=== PATIENT | male | born 1970 ===

== ENCOUNTER 2025-01-08 11:41 | Emergency (ER) | payer OTHER, MEDICAID, SELFPAY ==
[2025-01-08 12:50] VITALS: BP 143/74; PULSE 71; RESP 18; TEMP 36.7; O2SAT 94; BMI 31.9
--- NOTE | 2025-01-08 12:51 | ED.GENADULT ---
HPI - General Adult General Chief complaint: Eye Problems Stated complaint: Metal in Right eye, Saw accident, DR pinon Time Seen by Provider: 01/08/25 15:13 History of Present Illness ED Provider: Mary MONTE narrative: The patient is a 54-year-old male who says that he was using an electric saw on metal at work on Wednesday, 3 days ago. He believes that he got a small metal fragment in his right eye. He went to an urgent care the following day, Wednesday, 2 days ago. He was told that he had a piece of metal in his eye that they could not completely remove. He was prescribed erythromycin ointment and told he should be seen at an emergency room. He comes today because of this advice. He feels that the eye is feeling slightly better than it was feeling on Wednesday. He still has a sense of a foreign body in his eye. The patient does not wear contact lenses. He says he has never worn contact lenses. Related Data Previous Rx's ?Medication ?Instructions ?Recorded ofloxacin 0.3 % eye drops See Rx Instructions ophthalmic 01/08/25 (eye) .COMPLEX #10 mL Allergies Allergy/AdvReac Type Severity Reaction Status Date / Time No Known Allergies Allergy Verified 01/08/25 12:59 Review of Systems Review of Systems: Yes all other systems are reviewed and are negative PMFSH Social History Social History Advance Directives: No Advance Directives Information Provided: No Physical Exam ED Vital Signs: Vital Signs - 24 hr 01/08/25 12:50 Temperature 98.1 F Pulse Rate 71 Respiratory Rate 18 Blood Pressure 143/74 H Pulse Oximetry 94 Oxygen Delivery Method Room Air BMI result Body Mass Index 31.9 Const Other: The patient is a 54-year-old male who was awake and alert. He has a mild injection to the conjunctiva of the right eye but he had otherwise does not look acutely ill or in distress in any way. HENMT Other: The face is symmetrical. ?Mucous membranes moist. Eyes Other: The eyelids are normal. Pupils are round equal and reactive to light. There is some injection to the conjunctiva of the right eye. Extraocular movements are intact. Visual acuity was 20/50 in the right eye and 20/25 in the left eye. Slit-lamp exam did not reveal any obvious foreign body on the surface of the cornea or elsewhere in the eye. There was conjunctival injection but no perilimbal flushing. The cornea was clear. No rust ring was apparent. The anterior chamber seemed to clear. Fluorescein staining revealed some slight punctate uptake, mostly on the bottom half of the cornea. Negative Roxana sign. No actual corneal abrasion. Eyelid eversion revealed no foreign body under the eyelid. Neck Neck: Yes normal visual inspection and Yes full ROM Resp Effort & Inspection: normal respiratory effort Skin Other: The skin is dry and unremarkable Neuro General: gait normal, moves all extremities, no focal motor deficits and CN's II-XI intact bilaterally Course Course Course Narrative: This is a rapid medical exam performed by Elmer Camara NP: Additional HPI, ROS, PE not included below will be deferred to primary provider. Patient is a 54-year-old [place] speaking male presenting to the ED stating that at work on Wednesday, he was cutting pipes, and something fell into his eye, likely a piece of metal. Went to urgent care in [place] on Sat and was advised to follow up at the ED. Was given a patch and erythromycin ointment. Reporting pain, states UC was unable to remove the FB. Medications Administered Discontinued Medications Generic Name Dose Route Start Last Admin Trade Name Freq PRN Reason Stop Dose Admin Fluorescein Sodium 1 strip 01/08/25 14:59 01/08/25 15:01 Fluorescein Sodium Strip EYE-RIGHT 01/08/25 15:00 1 strip ONCE ONE Administration Tetracaine HCl 1 drop 01/08/25 14:42 01/08/25 14:58 Tetracaine Hcl/Pf 0.5% Oph Livier 4 Ml Drops EYE-RIGHT 01/08/25 14:43 1 drop ONCE ONE Administration Medical Decision Making Medical Decision Making 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 The patient is a 54-year-old male who indicates that 3 days ago on Wednesday he got a small piece of metal in his right eye when he was sawing metal at work. The next day, 2 days ago, he went to an urgent care and was told that he had a piece of metal in his eye that they could not and they got emergency room. He was given erythromycin ointment has a prescription. He has been using the erythromycin ointment. The patient arrived here stating that he has a foreign body in his eye that needs to be removed. He has been wearing an eye patch. He was very hard to interview with regard to the question of whether his eye was feeling better today than 2 days ago. Ultimately he seemed to imply that his eye is in fact feeling better. On my exam I do not see any foreign body with a slit-lamp exam. I do not see a rust ring. With fluorescein staining there seems to be some slight punctate uptake of dye that I would consider indicative of corneal irritation. I doubt this is a true full keratitis. The patient will be started on ofloxacin eyedrops. A prescription was sent to his pharmacy for this purpose. I explained I do not feel there was any foreign body to remove. I explained I felt that he had some corneal irritation that I hope will get better with the antibiotics. Our drill punch operator is currently on vacation until January 16. I have advised the patient to try to follow up with the drill punch operator but that if he feels his vision or his eye feels worse significantly before then he should return to the emergency room here or possibly go to another hospital which may have more robust ophthalmology coverage. Discharge Plan Discharge Clinical Impression: Corneal irritation of right eye Patient Disposition: Home, Self-Care Additional Instructions: I do not see any evidence that there is still any foreign body or metal in your eye. There is some irritation to the cornea of your eye. I have sent a prescription for new antibiotic eyedrops to your pharmacy. Please use these drops as prescribed. Please call the eye doctor office for a follow up appointment. I believe the eye doctor at this hospitalist currently on vacation until January 16. Nevertheless you may be able to arrange an appointment before then. My hope is that your I will get better over the next several days with the eyedrops. However if you get worse before you are able to follow up with our eye doctor you should probably be seen at another hospital which might have ophthalmology available. In any event if you are significantly worse return to the emergency room. Prescriptions: New ofloxacin 0.3 % drops See Rx Instructions .ROUTE .COMPLEX Qty: 10 0RF Rx Instructions: put 2 drps into affected eye(s) every 2 h x 2 days, then 2 drps 4 times/day for 7 days Referrals: Jovan Mak [Physician, Ophthalmology] Stand Alone Forms: Work/School Release Print Language: [place]
[2025-01-08] MEDS: Tetracaine HCl/PF 0.5% Oph Sol 4 ML DROPS 1 DROP EYE-RIGHT (14:58)
[2025-01-08] MEDS: Fluorescein Sodium STRIP 1 STRIP EYE-RIGHT (15:01)
[2025-01-08 17:35] VITALS: BP 143/74; PULSE 71; RESP 18; TEMP 36.7; O2SAT 94
== END 2025-01-08 15:22 | disposition home or self-care (01) ==
PROVIDERS: Emergency Provider Emergency Medicine
DX: H57.11 Ocular pain, right eye (principal)
CPT/HCPCS: 99282; 99283